=== PATIENT | male | born 1985 | race Caucasian/White ===

== ENCOUNTER 2017-08-26 23:08 | Emergency (ER) | payer BC, OTHER ==
[2017-08-26 23:09] VITALS: O2SAT 95
[2017-08-26 23:22] VITALS: BP 131/77; PULSE 60; RESP 16; TEMP 96.9
[2017-08-26] MEDS ORDERED: SOLUMEDROL 125 MG/2 ML 125 MG/2 ML PDS IM ONE (23:39)
[2017-08-26] MEDS ORDERED: SOLUMEDROL 125 MG/2 ML 125 MG/2 ML PDS ONE (23:40)
[2017-08-27] MEDS ORDERED: FUROSEMIDE 20mg SOL IV ONE (00:23)
== END 2017-08-27 00:14 | disposition home or self-care (01) | DRG 607 ==
LOC: ED 23:08
DX: L50.9 Urticaria, unspecified (principal)
CPT/HCPCS: 99282; J2930